=== PATIENT | female | born 1990 | race Caucasian/White ===

== ENCOUNTER → 2019-07-26 | Day surgery (SDC) | payer BC ==
[~2019-07-26] VITALS: Ht 165.1 cm; Wt 75.3 kg
[~2019-07-26] MED LIST: ASPI-964 PO; LACTATED RINGERS 1,000 ML IV SCH; SERT50TA PO
[2019-07-26 06:59] LABS: UCG SCREEN NEGATIVE
== END | disposition home or self-care (01) ==
LOC: OR 05:42
PROVIDERS: ATTEND Obstetrics & Gynecology
DX: E28.2 Polycystic ovarian syndrome (principal); Z53.8 Procedure and treatment not carried out for other reasons; Z79.899 Other long term (current) drug therapy; Z79.82 Long term (current) use of aspirin
CPT/HCPCS: 81025